=== PATIENT | female | born 1995 | race Two or more races ===

== ENCOUNTER 2025-04-08 11:01 | Observation (INO) | payer MEDICAID, SELFPAY ==
[2025-04-08 11:20] VITALS: BP 122/83; PULSE 74; RESP 19; TEMP 36.6; O2SAT 97
[2025-04-08 11:29] VITALS: BP 119/78; PULSE 78; RESP 19; TEMP 36.8; O2SAT 97; BMI 38.9
--- NOTE | 2025-04-08 11:41 | XR_ITS ---
Examination: Abdomen sonogram, Limited Date and time of exam: April 08, 2025, 12 noon INDICATIONS: Epigastric pain beginning this morning Technique: Real-time donahue scale transabdominal sonographic images of the upper abdomen obtained. Findings: Multiple gallstones Gallbladder wall borderline thickened 0.4 cm Common bile duct 0.3 cm Pancreatic head 3.0 cm Liver 15.6 cm fatty infiltration. Normal hepatopetal portal venous flow. Patent IVC IMPRESSION: Cholelithiasis Borderline thickening gallbladder wall, consider HIDA scan or MRCP follow-up to exclude cholecystitis as clinically warranted.
--- NOTE | 2025-04-08 12:14 | PD.EDRME ---
Rapid Medical Screening Exam [facility] Arrival date/time: 04/08/25 11:01 This is a 29-year-old female that comes into the emergency room with complaints of epigastric pain that radiates down her back. Patient states that she has had this pain before and was told that it was possibly gallstones. Patient states the pain started this morning patient denies any fever, nausea, vomiting. I have greeted and performed a focused initial assessment of this patient. Initial appropriate labs ordered at this time. A comprehensive ED assessment and evaluation of the patient and analysis of all test and completion of medical decision making process will be conducted by additional ED provider. Chief Complaint: Abdominal Pain Time Seen by Provider: 04/08/25 11:20 Vital signs: Vital Signs Temperature 97.9 F 04/08/25 11:20 Pulse Rate 74 04/08/25 11:20 Respiratory Rate 19 04/08/25 11:20 Blood Pressure 122/83 04/08/25 11:20 Pulse Oximetry (%) 97 04/08/25 11:20 Oxygen Delivery Method Room Air 04/08/25 11:20
[2025-04-08 12:31] LABS: Collection Type, Urine Voided
[2025-04-08 12:49] LABS: Basophils # (Auto) 0.1 Thou/mm3 (0.0-0.2); Basophils % (Auto) 0 % (0-2.5); Eosinophils # (Auto) 0.1 Thou/mm3 (0.0-0.5); Eosinophils % (Auto) 1 % (0-10); Hematocrit 39.7 % (36.0-46.0); Hemoglobin 13.7 g/dL (12.0-16.0); Immature Granulocytes Auto 0.06 Thou/mm3 (0.00-0.00); Lymphocytes # (Auto) 1.3 Thou/mm3 (1.0-4.8); Lymphocytes % (Auto) 10 % (10-50); Mean Corpuscular HGB Conc 34.5 g/dl (31.0-37.0); Mean Corpuscular Hemoglobin 28.1 pg (25.0-35.0); Mean Corpuscular Volume 81 fL (80-100); Monocytes # (Auto) 0.7 Thou/mm3 (0.0-0.8); Monocytes % (Auto) 5 % (0-12); Neutrophils # (Auto) 10.9 Thou/mm3 (1.8-7.7); Neutrophils % (Auto) 84 % (37-80); Nucleated Red Blood Cell # 0.00 Thou/mm3 (0.00-0.00); Nucleated Red Blood Cell % 0 /100 WBC (0); Platelet Count 244 Thou/mm3 (140-440); RDW Standard Deviation 36.6 fL (36.4-46.3); Red Blood Count 4.88 Miln/mm3 (4.00-5.20); White Blood Count 13.1 Thou/mm3 (3.6-11.0)
[2025-04-08 12:53] LABS: Alanine Aminotransferase 30 U/L (10-49); Albumin, Serum 4.4 gm/dL (3.5-5.0); Albumin/Globulin Ratio 1.8 (1.2-2.2); Alkaline Phosphatase 74 U/L (46-116); Anion Gap 10 (7-16); Aspartate Amino Transferase 49 U/L (0-34); BUN/Creatinine Ratio 13 Ratio (12-20); Bilirubin,Total 1.0 mg/dL (0.3-1.2); Blood Urea Nitrogen 9 mg/dL (9-23); Calcium 9.1 mg/dL (8.3-10.6); Calcium (Corrected) 9.1 mg/dL (8.5-10.1); Carbon Dioxide 24.9 mMol/L (20.0-31.0); Chloride 108 mMol/L (98-107); Creatinine (Component) 0.7 mg/dL (0.6-1.3); Estimated Creatinine Clearance 137.2 mL/min (>60); Globulin 2.4 gm/dL (2.3-3.5); Glucose 112 mg/dL (74-106); Lipase 33 U/L (12-53); Osmolality,Calculated 284 (275-295); Potassium 3.8 mMol/L (3.4-5.1); Sodium 143 mMol/L (136-145); Total Protein 6.8 gm/dL (5.7-8.2); eGFR > 60 See Note
[2025-04-08 12:54] LABS: Bilirubin,Urine Negative (Negative); Blood,Urine Negative (Negative); Clarity,Urine Clear (Clear/Hazy); Color,Urine Yellow (Lt Yel-Yel); Culture Indicated,Urine Not Indicated; Glucose, Urine Negative (Negative); Ketones,Urine Negative (Negative); Leukocyte Esterase,Urine Negative (Negative); Nitrite,Urine Negative (Negative); PH,Urine 6.5 (5.0-7.0); Protein,Urine Trace (Neg - Trace); RBC,Urine 2 /hpf (0-3); Specific Gravity,Urine 1.030 (1.001-1.035); Squamous Epithelial Cell,Urine 2 /hpf (0-5); Urobilinogen,Urine 3.0 mg/dL (0.0-1.0); WBC,Urine 1 /hpf (0-5)
[2025-04-08 13:01] LABS: Amphetamine/Methamp Scrn,U Negative (Negative); Barbiturate Screen,Urine Negative (Negative); Benzodiazepines Screen,Urine Negative (Negative); Benzoylecgonine Screen, Ur Negative (Negative); Fentanyl Screen,Urine Negative (Negative); Opiate Screen,Urine Negative (Negative); THC Screen,Urine Negative (Negative)
[2025-04-08 13:53] LABS: HCG Qualitative,Urine Negative
--- NOTE | 2025-04-08 13:59 | PD.EDABDPN ---
ED Abdominal Pain RME/HPI General Chief Complaint: Abdominal Pain Stated complaint: STOMACH PAIN/CHEST PAIN X3O MINS Time seen by provider: 04/08/25 11:20 Arrival date/time: 04/08/25 11:01 Limitations: no limitations RME / HPI RME / HPI narrative: 04/08/25 11:01 This is a 29-year-old female that comes into the emergency room with complaints of epigastric pain that radiates down her back. Patient states that she has had this pain before and was told that it was possibly gallstones. Patient states the pain started this morning patient denies any fever, nausea, vomiting. I have greeted and performed a focused initial assessment of this patient. Initial appropriate labs ordered at this time. A comprehensive ED assessment and evaluation of the patient and analysis of all test and completion of medical decision making process will be conducted by additional ED provider. Dr. Hahn Patient is a 29-year-old female is in the emergency department with concerns of epigastric pain. Denies fevers, chills, cough, runny nose, dysuria, hematuria, melena, bloody stools. Endorses nausea and vomiting. Patient states that she was told that she had cholelithiasis sometime back however her symptoms have been well-controlled. Patient states that the pain is unbearable Related Data Home Medications ?Medication ?Instructions ?Recorded ?Confirmed wovpvjpa-[id number]-Sw-FA 1 mg 1 tab PO QDAY 03/18/23 04/08/25 tablet Previous Rx's ?Medication ?Instructions ?Recorded docusate sodium 100 mg capsule 100 mg PO BID #20 caps 04/09/25 (Colace) hydrocodone 5 mg-acetaminophen 325 1 tab PO Q6HR PRN pain (scale 1020/25 mg tablet score 7-10) #10 tabs ibuprofen 600 mg tablet 600 mg PO Q8H PRN pain (scale 25 score 4-6) #15 tabs Allergies Allergy/AdvReac Type Severity Reaction Status Date / Time No Known Allergies Allergy Unknown Verified 04/08/25 11:05 ED Exam General Limitations: Present no limitations General appearance: Present alert Head Head exam: Present atraumatic and normocephalic Eye Eye exam: Present normal appearance and PERRL ENT ENT exam: Present normal exam and normal oropharynx Neck Neck exam: Present normal inspection and full ROM Chest Chest inspection: Present normal inspection and symmetric chest wall rise Respiratory Respiratory exam: Present normal lung sounds bilaterally; Absent respiratory distress Cardiovascular Cardiovascular exam: Present regular rate and normal rhythm Abdominal Exam Abdominal exam: Present soft, distention and tenderness (Tenderness palpation, worse in the right upper quadrant, uncomfortable) Back Exam Back exam: Present other Neurological Exam Neurological exam: Present alert and other Psychiatric Psychiatric exam: Present normal affect and normal mood Skin Skin exam: Present warm, dry and intact Course Quality Measures none Orders Category Date Time Status Consult to General Surgery Stat Cons 04/08/25 15:12 Ordered US abdomen limited Stat Exams 04/08/25 11:41 Completed Blood Culture (Lab) Stat Lab 04/08/25 15:20 Results CBC Stat Lab 04/08/25 12:20 Completed Comprehensive Metabolic Panel Stat Lab 04/08/25 12:20 Completed Drug Screen,Urine Stat Lab 04/08/25 12:08 Completed HCG Qualitative,Urine Stat Lab 04/08/25 12:08 Completed Lipase Stat Lab 04/08/25 12:20 Completed Urinalysis, C/S if Indicated Stat Lab 04/08/25 12:08 Completed Ketorolac Inj [Toradol Inj] Med 04/08/25 15:13 Discontinued 15 mg IM X1 ONE Ringers Lactated 1000 ml [Lactated Ringers] 1,000 ml Med 04/08/25 15:20 Discontinued IV 999 mls/hr cefTRIAXone/D5w 1gm IV premix [Rocephin/D5w 1gm IV Med 04/08/25 15:13 Discontinued premix] 1 gm in 50 ml IV STAT metroNIDAZOLE/NS 500 MG IVPB [Flagyl 500 mg IV] Med 04/08/25 15:13 Discontinued 500 mg in 100 ml IV STAT Vital Signs Vital signs: Vital Signs Temperature 97.9 F 04/08/25 11:20 Pulse Rate 74 04/08/25 11:20 Respiratory Rate 19 04/08/25 11:20 Blood Pressure 122/83 04/08/25 11:20 Pulse Oximetry (%) 97 04/08/25 11:20 Oxygen Delivery Method Room Air 04/08/25 11:20 Abdominal Pain MDM MDM Narrative MDM Narrative:: Patient is a 29-year-old female seen emerged from concerns for abdominal pain. Vital signs and exam as listed. Prior provider evaluated patient. Ordered labs, right upper quadrant ultrasound. Offer medication for symptom relief. Concern for cholelithiasis cholecystitis pancreatitis urinary tract infection among others. On my evaluation, patient significantly uncomfortable, teary-eyed states that her pain comes and goes every 30 minutes. Ordered medication for symptom relief. Labs with evidence of leukocytosis 13.1, left shift of 84%, no other acute hematologic abnormalities. No significant acute metabolic derangements mild AST 49, lipase not elevated, T. bili normal, urinalysis without evidence of infection patient is not . Drug screen negative. Ultrasound with evidence of borderline gallbladder wall thickening, and multiple gallstones. Given leukocytosis, severe pain, and gallbladder wall thickening concerning the patient is developing cholecystitis. Ordered blood cultures and antibiotics. Consulted on-call surgeon Dr. Allen, agrees with admission. Will consult. Discussed case with hospitalist, kindly accepted patient for admission. Patient data External records reviewed:: [facility] previous records Clinical information provided by:: patient Social determinants that could affect healthcare access:: none Patient has the following chronic illnesses:: See MDM How is presenting disease/condition affected by chronic disease/condition?: exacerbated by Evaluation data The following diagnostics were reviewed and interpreted by me:: lab results and radiology exam(s) Lab and/or radiology exams considered but not ordered:: None Interpretation Summary: See MDM Medications / Prescriptions Medications or Prescriptions considered but not ordered:: None Medication administrations:: Medication Administration History Discontinued Medications Acetaminophen (Acetaminophen 325 Mg Tablet) 650 mg PO Q6H PRN PRN Reason: Fever >101.5 Stop: 05/08/25 16:03 Acetaminophen (Acetaminophen 325 Mg Tablet) 650 mg PO Q6H PRN PRN Reason: Fever >100.4 and/or pain 1-3 Stop: 05/08/25 16:03 Last Admin: 04/09/25 10:00 Dose: 650 mg Documented By: Hydrocodone Bitart/Acetaminophen (Hydrocodone/Apap 5/325 Tablet) 1 tab PO Q6HR PRN PRN Reason: Pain 4-6 Stop: 04/13/25 17:07 Bupivacaine HCl (Bupivacaine Mpf 0.5% 30 Ml Vial) Confirm Administered Dose 30 ml .ROUTE .STK-MED ONE Stop: 04/09/25 10:49 Cefoxitin Sodium (Cefoxitin Sod Inj 1 Gm Vial) Confirm Administered Dose 1 gm .ROUTE .STK-MED ONE Stop: 04/09/25 11:04 Cefoxitin Sodium (Cefoxitin Sod Inj 1 Gm Vial) Confirm Administered Dose 1 gm .ROUTE .STK-MED ONE Stop: 04/09/25 11:04 Docusate Sodium (Docusate Sod 100 Mg Capsule) 100 mg PO X1 ONE; Protocol Stop: 04/09/25 12:50 Last Admin: 04/09/25 14:01 Dose: 100 mg Documented By: MR Fentanyl Citrate (Fentanyl Cit Inj 50 Mcg/Ml Amp 2ml) Confirm Administered Dose 100 mcg .ROUTE .STK-MED ONE Stop: 04/09/25 10:48 Hydromorphone HCl (Hydromorphone Inj 2 Mg/Ml Vial) Confirm Administered Dose 2 mg .ROUTE .STK-MED ONE Stop: 04/09/25 10:48 Hydromorphone HCl (Hydromorphone Inj 2 Mg/Ml Vial) 0.4 mg IVP Q5M PRN PRN Reason: PAIN SCALE 7-10 (Severe Stop: 04/09/25 13:45 Ceftriaxone Sodium/Dextrose (Rocephin/D5w 1gm Iv Premix) 1 gm in 50 mls @ 100 mls/hr IV STAT STA Stop: 04/08/25 15:42 Last Admin: 04/08/25 20:21 Dose: Not Given Documented By: SOHA Non-Admin Reason: Per Dr. Chapman do not give Metronidazole (Flagyl 500 Mg Iv) 500 mg in 100 mls @ 200 mls/hr IV STAT STA Stop: 04/08/25 15:42 Last Admin: 04/08/25 20:22 Dose: Not Given Documented By: SOHA Non-Admin Reason: Per Dr. Chapman do not give Lactated Ringer's (Lactated Ringers) 1,000 mls @ 999 mls/hr IV .Q1H1M ONE Stop: 04/08/25 16:20 Last Admin: 04/08/25 19:12 Dose: 999 mls/hr Documented By: LIZETTE Piperacillin/Tazobactam/Dextrose (Zosyn) 3.375 gm in 50 mls @ 12.5 mls/hr IV Q8HR [facility]; Protocol Stop: 04/15/25 21:59 Last Admin: 04/09/25 05:03 Dose: 12.5 mls/hr Documented By: Infusion: 04/09/25 02:25 Dose: Infused Documented By: Admin: 04/08/25 22:25 Dose: 12.5 mls/hr Documented By: SOHA Piperacillin/Tazobactam/Dextrose (Zosyn) 3.375 gm in 50 mls @ 100 mls/hr IV X1 ONE; Protocol Stop: 04/08/25 16:44 Last Admin: 04/08/25 20:22 Dose: Not Given Documented By: GD Non-Admin Reason: Per Dr. Chapman do not give. Lactated Ringer's (Lactated Ringers) 1,000 mls @ 100 mls/hr IV .Q10H JAYANT Stop: 05/08/25 17:07 Last Admin: 04/09/25 05:27 Dose: 100 mls/hr Documented By: Infusion: 04/09/25 05:27 Dose: Infused Documented By: Admin: 04/08/25 20:14 Dose: 100 mls/hr Documented By: SOHA Acetaminophen (Ofirmev Inj) Confirm Administered Dose 100 mls @ ud IV .STK-MED ONE Stop: 04/09/25 11:09 Potassium Phosphate (Pot Phos 15 Mmol In Ns 250 Ml) 15 mmol in 250 mls @ 62.5 mls/hr IV Q4H JAYANT Stop: 04/09/25 22:55 Last Admin: 04/09/25 15:33 Dose: Not Given Documented By: Non-Admin Reason: DISCONTINUE PER DR. SANCHEZ Ketorolac Tromethamine (Ketorolac Inj 30 Mg/Ml Vial) 15 mg IM X1 ONE Stop: 04/08/25 15:14 Last Admin: 04/08/25 20:17 Dose: Not Given Documented By: SOHA Non-Admin Reason: ER did not administer. Pt. not in pain Ketorolac Tromethamine (Ketorolac Inj 30 Mg/Ml Vial) Confirm Administered Dose 30 mg .ROUTE .STK-MED ONE Stop: 04/09/25 11:33 Ketorolac Tromethamine (Ketorolac Inj 30 Mg/Ml Vial) Confirm Administered Dose 30 mg .ROUTE .STK-MED ONE Stop: 04/09/25 11:34 Lidocaine HCl (Lidocaine Inj 2% 20 Mg/Ml Syringe 5 Ml) Confirm Administered Dose 100 mg .ROUTE .STK-MED ONE Stop: 04/09/25 10:55 Midazolam HCl (Midazolam Inj 1 Mg/Ml Vial 2 Ml) Confirm Administered Dose 2 mg .ROUTE .STK-MED ONE Stop: 04/09/25 10:48 Morphine Sulfate (Morphine Sulf Inj 4 Mg/Ml Vial) 1 mg IVP Q4HR PRN PRN Reason: pain 7-10 Ondansetron HCl (Ondansetron Inj 2 Mg/Ml Inj 2 Ml) 4 mg IVP Q6H PRN; Protocol PRN Reason: NAUSEA OR VOMITING Stop: 05/08/25 16:03 Last Admin: 04/09/25 10:00 Dose: 4 mg Documented By: Ondansetron HCl (Ondansetron Inj 2 Mg/Ml Inj 2 Ml) 4 mg IVP X1 ONE Stop: 04/09/25 11:46 Last Admin: 04/09/25 13:16 Dose: Not Given Documented By: Non-Admin Reason: given in OR Potassium Chloride (Potassium Chloride 20 Meq Tabcr) 20 meq PO X1 ONE Stop: 04/09/25 15:32 Last Admin: 04/09/25 15:36 Dose: 20 meq Documented By: Propofol (Propofol Inj 10 Mg/Ml Vial 20 Ml) Confirm Administered Dose 200 mg IV .STK-MED ONE Stop: 04/09/25 10:48 Rocuronium Maysel (Rocuronium Inj 10 Mg/Ml Vial 10 Ml) Confirm Administered Dose 100 mg .ROUTE .STK-MED ONE Stop: 04/09/25 10:48 Sugammadex Sodium (Sugammadex Inj 100 Mg/Ml 2ml Vial) Confirm Administered Dose 200 mg .ROUTE .STK-MED ONE Stop: 04/09/25 11:33 Sugammadex Sodium (Sugammadex Inj 100 Mg/Ml 2ml Vial) Confirm Administered Dose 200 mg .ROUTE .STK-MED ONE Stop: 04/09/25 11:46 See above Consultations Consultation(s) initiated? (list below): Yes Diagnosis Differential diagnosis abdominal pain: other Most likely diagnosis given after review of the tests above:: Cholecystitis Admission Indicated Admission indicated?: indicated Admission Request Was there a request for admission?: Yes Admission Attestation Admission request attestation: Discussed case with Hospitalist service regarding admission. Discussed patients ED course, exam findings, labs, and radiology results. The Hospitalist [agrees] to accept the patient for admission. Disposition Plan Disposition Plan: Admit Critical Care Time Critical Care Time Critical Care Time: Yes Total Critical Care Time (min.): 45 Attestation: Due to a high probability of clinically significant, life threatening deterioration, the patient required my highest level of preparedness to intervene emergently and I personally spent this critical care time directly and personally managing the patient. This critical care time included obtaining a history; examining the patient; pulse oximetry; ordering and review of studies; arranging urgent treatment with development of a management plan; evaluation of patient's response to treatment; frequent reassessment; and, discussions with other providers. This critical care time was performed to assess and manage the high probability of imminent, life-threatening deterioration that could result in multi-organ failure. It was exclusive of separately billable procedures and treating other patients and teaching time. Discharge Plan Plan Patient Disposition: Admit Acute Care w/in Hospital Problem List Clinical Impression: Acute cholecystitis Patient/Caregiver Discharge Instructions Discharge Activity: activity as tolerated Other Activity Instructions:: Please follow-up primary care physician within 2 to 3 days upon discharge Please follow-up with your general surgeon within 5 to 7 days upon discharge. You have been started on Colace 1 mg twice daily for 10 days, Empire 5/325 1 tablet every 6 hours as needed for pain, and ibuprofen 600 mg tablet every 8 hours as needed for pain. Come back to the ED if you develop any fevers, excruciating pain, abdominal distention, or any other concerning symptoms.
--- NOTE | 2025-04-08 16:12 | PD.RESHP ---
Documentation for date of: 04/08/25 Senior resident attestation: Patient evaluated and examined at the bedside, plan of care discussed with rest of the team including my attending physician, except as noted. Qurafita PGY3 HPI History of Present Illness Chief complaint: Abdominal pain History of present illness: Annemarie Langford 29F no pmhx who presents with epigastric and RUQ pain starting this morning. Patient states she woke up with right quadrant pain starting at 4/10 however throughout the day worsened to 9/10 prompting current ED visit. Patient reports pain starts at epigastric region and radiates to the right upper quadrant as well as to the back. Reports pain waxes and wanes every 30 min to hour and is described as sharp cramp-like. Patient reports having similar symptoms in 2012 when she was diagnosed with gallstones but was managed with medication only. Patient denies any recent illness, travel or dietary changes. Denies fever/chills, nausea/vomiting, chest pain or shortness of breath. PMHx: none Surgical Hx: none FHx: Noncontributory Social Hx: denies tobacco, alcohol or recreational/illicit drug use Allergies: NKDA Medications: none In ED, BP 122/83 HR 74 RR 19, afebrile, satting 97% RA, WBC 13.1, Hgb 9.7, Tbili 1.0, AST/ALT 49/30. In ED, given ketorolac 15 mg x1, Flagyl x1, Rocephin x1, 1L LR. Abdominal US: cholelithiasis, borderline thickening GB wall. Surgery consulted, cholecystectomy today. Patient was admitted for cholecystitis, scheduled for cholecystectomy. Review of Systems Review of Systems Systems Reviewed: All systems reviewed, normal except as documented Exam Vital Signs Temp Pulse Resp BP Pulse Ox O2 Del Method 98.3 F 78 19 119/78 97 Room Air 04/08/25 11:29 04/08/25 11:29 04/08/25 11:29 04/08/25 11:29 04/08/25 11:29 04/08/25 11:29 Narrative Exam GENERAL: AOx3, teary, obese well groomed female HEENT: mucous membranes moist, bilateral sclera anicteric CARDIOVASCULAR: regular rate and rhythm, S1/S2 present, no murmurs appreciated PULMONARY: clear to auscultation bilaterally, no rales/rhonchi/wheezes ABDOMINAL: soft, non-distended, bowel sounds present, RUQ TTP with guarding EXTREMITIES: no peripheral edema SKIN: warm and dry, intact, no rashes NEURO: CN II-XII grossly intact, no focal deficits, alert, following commands Results: Labs 04/09/25 05:15 04/09/25 05:15 Labs: Short CBC 04/08/25 Range/Units 12:20 WBC 13.1 H (3.6-11.0) Thou/mm3 Hgb 13.7 (12.0-16.0) g/dL Hct 39.7 (36.0-46.0) % Plt Count 244 (140-440) Thou/mm3 BMP 04/08/25 12:20 Sodium 143 Potassium 3.8 Chloride 108 H Carbon Dioxide 24.9 BUN 9 Creatinine 0.7 Glucose 112 H Calcium 9.1 Liver Function 04/08/25 Range/Units 12:20 Total Bilirubin 1.0 (0.3-1.2) mg/dL AST 49 H (0-34) U/L ALT 30 (10-49) U/L Alkaline Phosphatase 74 (46-116) U/L Albumin 4.4 (3.5-5.0) gm/dL Urine 04/08/25 Range/Units 12:08 Urine Color Yellow (Lt Yel-Yel) Urine Clarity Clear (Clear/Hazy) Urine pH 6.5 (5.0-7.0) Ur Specific [place] 1.030 (1.001-1.035) Urine Protein Trace (Neg - Trace) Urine Glucose (UA) Negative (Negative) Quality Measures Quality Measures VTE prophylaxis Medications Home Medications and Allergies Home Medications ?Medication ?Instructions ?Recorded ?Confirmed ?Type [id number] 1 mg 1 tab PO QDAY 03/18/23 04/08/25 History tablet Allergies Allergy/AdvReac Type Severity Reaction Status Date / Time No Known Allergies Allergy Unknown Verified 04/08/25 11:05 Visit Medications Acetaminophen (Acetaminophen 325 Mg Tablet) 650 mg PO Q6H PRN PRN Reason: Fever >101.5 Stop: 05/08/25 16:03 Lactated Ringer's (Lactated Ringers) 1,000 mls @ 999 mls/hr IV .Q1H1M ONE Stop: 04/08/25 16:20 Piperacillin/Tazobactam/Dextrose (Zosyn) 50 mls @ 100 mls/hr IV Q6HR JAYANT; Protocol Stop: 04/15/25 16:09 Ondansetron HCl (Ondansetron Inj 2 Mg/Ml Inj 2 Ml) 4 mg IVP Q6H PRN; Protocol PRN Reason: NAUSEA OR VOMITING Stop: 05/08/25 16:03 Discontinued Medications Ceftriaxone Sodium/Dextrose (Rocephin/D5w 1gm Iv Premix) 1 gm in 50 mls @ 100 mls/hr IV STAT STA Stop: 04/08/25 15:42 Metronidazole (Flagyl 500 Mg Iv) 500 mg in 100 mls @ 200 mls/hr IV STAT STA Stop: 04/08/25 15:42 Ketorolac Tromethamine (Ketorolac Inj 30 Mg/Ml Vial) 15 mg IM X1 ONE Stop: 04/08/25 15:14 Assessment & Plan Plan Annemarie Langford 29F no pmhx who presented to [facility] ED 04/08 for epigastric and RUQ pain, admitted for cholecystitis, planned for cholecystectomy 04/08. #Acute calculus cholecystitis #RUQ pain Presents with severe epigastric and RUQ cramp-like pain radiating to the back. Diagnosed gallstones in 2012 with similar episode. On admission, afebrile, BP 120/80 heart rate 74, AST/ALT 40/30 T. bili 1.0. s/p 1L LR in ED, ceftriaxone x1 and flagyl x1 Abdominal US: cholelithiasis, borderline thickening GB wall Given patient's history of gallstones as well as severe pain high suspicion for acute calculous cholecystitis Plan: - Surgery consulted: cholecystectomy today, NPO now - Zosyn (04/08- - Pain scale tylenol, norco 5 and morphine 1 mg for pain and zofran for nausea - Started 1L LR 100 cc/hr Hospital management: Lines: PIV Diet: NPO now Bowel: none GI prophylaxis: none DVT prophylaxis: SCDs Disposition: med [facility], pending cholecystectomy tonight CODE STATUS: FULL CODE Plan of care discussed with attending Dr. Brito, and PGY-3 Dr. Tate. Rachael Srivastava, DO PGY-1 Internal Medicine Attending Provider Attestation/Addendum I have seen and examined the patient. I was physically present for the [place]fle[place] portions of the services provided including history, physical exam, diagnosis, treatment plans and orders. I agree with assessment and plan of care as documented by residents. After examination of the patient and review of the clinical data I feel that this patient needs admission to the hospital for further treatment/evaluation. Even though this this note was carefully revised there may still be minor errors in roller printing supervisor due to voice recognition software. Geo Brito MD
--- NOTE | 2025-04-08 17:45 | PD.SURCONS ---
HPI Consult details Consult date: 04/08/25 Reason for consultation narrative: Right upper quadrant abdominal pain with nausea History of present illness: 29-year-old obese female with history of gallstone presented to the emergency department with acute onset of abdominal pain. Her pain started earlier today after eating. The pain was in the epigastric and right upper quadrant rating to her back. She has had some nausea but denies vomiting, fever, chills, jaundice or discoloration of urine or stool. Her liver enzymes are unremarkable. She was noted to have elevated WBC. Ultrasound revealed multiple gallstones with gallbladder wall thickening. Review of Systems Constitutional Constitutional: Denies chills and Denies fever(s) Cardiovascular Cardiovascular: Denies chest pain Respiratory Respiratory: Denies cough Gastrointestinal Gastrointestinal: Reports abdominal pain, Reports nausea and Denies vomiting Genitourinary Genitourinary: Denies difficulty voiding Musculoskeletal Musculoskeletal: Reports back pain Hematologic/Lymphatic Hematologic/Lymphatic: Denies easy bleeding and Denies easy bruising Past Medical History Surgical History OTHER SURGICAL HX: No surgeries in the past Social History SMOKING STATUS: Never smoker SUBSTANCE USE: does not use ALCOHOL: Never Meds Home Medications and Allergies Home Medications ?Medication ?Instructions ?Recorded ?Confirmed ?Type [id number]-[id number]-[id number]-FA 1 mg 1 tab PO QDAY 03/18/23 04/08/25 History tablet Allergies Allergy/AdvReac Type Severity Reaction Status Date / Time No Known Allergies Allergy Unknown Verified 04/08/25 11:05 Exam Vital Signs Temp Pulse Resp BP Pulse Ox O2 Del Method 98.3 F 78 19 119/78 97 Room Air 04/08/25 11:29 04/08/25 11:29 04/08/25 11:29 04/08/25 11:29 04/08/25 11:29 04/08/25 11:29 Routine HEENT Exam Eye: Present PERRL (Anicteric sclera) Routine Abdominal Exam Comments: Abdomen is soft and nondistended. She has tenderness to palpation in epigastric and right upper quadrant, positive Ryan sign Results Results: Laboratory Laboratory results: results reviewed Results: Imaging US - abdomen: report reviewed and image reviewed Assessment & Plan Problem List (1) Biliary calculus with cholecystitis: Status: Acute Plan Will plan for laparoscopic possible open cholecystectomy. Risks include but not limited to infection, bleeding, injury to bowel, liver, stomach, bile leak, retained stone, bile leak, abdominal sepsis and or abdominal abscess, need for further procedure and or operation discussed with the patient. Benefits and alternatives explained to her, all her questions answered, she agreed and consented to proceed with the operation. (1) Biliary calculus with cholecystitis Qualifiers: Biliary obstruction: without biliary obstruction Cholecystitis acuity: chronic Cholelithiasis location: gallbladder Qualified Code(s): K80.10 - Calculus of gallbladder with chronic cholecystitis without obstruction
--- NOTE | 2025-04-08 17:49 | PC.NURSE ---
REPORT CALLED TO JUAN LAWSON. 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
--- NOTE | 2025-04-08 17:58 | PC.NURSE ---
Pt. arrived to floor from Sofia Husain Questionnaire Screening complted by myself before pt. taken to room 374, No to all questions.
--- NOTE | 2025-04-08 18:01 | PC.NURSE ---
Pt arrived to floor from Sofia Rudolph screen questions not completed. I asked the pt. the questions answer to all questions is NO .
[2025-04-08 18:04] VITALS: BMI 39.6
[2025-04-08 18:45] VITALS: BP 116/72; PULSE 74; RESP 20; TEMP 36.6; O2SAT 98
[2025-04-08] MEDS: RINGERS LACTATED 1000 ML 1,000 ML 999 ML IV (19:12)
[2025-04-08 20:00] VITALS: BP 113/68; PULSE 71; RESP 16; TEMP 37.1; O2SAT 100
[2025-04-08] MEDS: RINGERS LACTATED 1000 ML 1,000 ML 100 ML IV (20:14)
[2025-04-08] MEDS: PIPER/TAZO 3.375 GM PREMIX 3.375 GM/50 ML BAG IV (22:25)
[2025-04-09] VITALS (13 sets, daily range): BP systolic 111–143; BP diastolic 68–91; PULSE 69–121; RESP 15–99; TEMP 36.5–37.1; O2SAT 96–100
[2025-04-09] MEDS: PIPER/TAZO 3.375 GM PREMIX 3.375 GM/50 ML BAG IV (05:03)
[2025-04-09] MEDS: RINGERS LACTATED 1000 ML 1,000 ML 100 ML IV (05:27)
[2025-04-09 06:27] LABS: Basophils # (Auto) 0.0 Thou/mm3 (0.0-0.2); Basophils % (Auto) 1 % (0-2.5); Eosinophils # (Auto) 0.1 Thou/mm3 (0.0-0.5); Eosinophils % (Auto) 1 % (0-10); Hematocrit 36.4 % (36.0-46.0); Hemoglobin 12.4 g/dL (12.0-16.0); Immature Granulocytes Auto 0.02 Thou/mm3 (0.00-0.00); Lymphocytes # (Auto) 2.0 Thou/mm3 (1.0-4.8); Lymphocytes % (Auto) 23 % (10-50); Mean Corpuscular HGB Conc 34.1 g/dl (31.0-37.0); Mean Corpuscular Hemoglobin 28.3 pg (25.0-35.0); Mean Corpuscular Volume 83 fL (80-100); Monocytes # (Auto) 0.6 Thou/mm3 (0.0-0.8); Monocytes % (Auto) 7 % (0-12); Neutrophils # (Auto) 5.9 Thou/mm3 (1.8-7.7); Neutrophils % (Auto) 69 % (37-80); Nucleated Red Blood Cell # 0.00 Thou/mm3 (0.00-0.00); Nucleated Red Blood Cell % 0 /100 WBC (0); Platelet Count 240 Thou/mm3 (140-440); RDW Standard Deviation 37.8 fL (36.4-46.3); Red Blood Count 4.38 Miln/mm3 (4.00-5.20); White Blood Count 8.7 Thou/mm3 (3.6-11.0)
[2025-04-09 07:02] LABS: Alanine Aminotransferase 110 U/L (10-49); Albumin, Serum 3.8 gm/dL (3.5-5.0); Albumin/Globulin Ratio 1.7 (1.2-2.2); Alkaline Phosphatase 88 U/L (46-116); Anion Gap 10 (7-16); Aspartate Amino Transferase 100 U/L (0-34); BUN/Creatinine Ratio 8 Ratio (12-20); Bilirubin,Total 1.1 mg/dL (0.3-1.2); Blood Urea Nitrogen 5 mg/dL (9-23); Calcium 8.7 mg/dL (8.3-10.6); Calcium (Corrected) 8.9 mg/dL (8.5-10.1); Carbon Dioxide 23.1 mMol/L (20.0-31.0); Cardiac Risk Estimate 3.4 RATIO (3.7-5.6); Chloride 110 mMol/L (98-107); Cholesterol 116 mg/dL (132-200); Creatinine (Component) 0.6 mg/dL (0.6-1.3); Estimated Creatinine Clearance 161.7 mL/min (>60); Globulin 2.2 gm/dL (2.3-3.5); Glucose 88 mg/dL (74-106); HDL Cholesterol 34 mg/dL (40-60); LDL Cholesterol,Calculated 69 mg/dL (0-130); Magnesium 1.8 mg/dL (1.6-2.6); Osmolality,Calculated 281 (275-295); Potassium 3.5 mMol/L (3.4-5.1); Sodium 143 mMol/L (136-145); Total Protein 6.0 gm/dL (5.7-8.2); Triglycerides 67 mg/dL (30-150); eGFR > 60 See Note
[2025-04-09] MEDS: ACETAMINOPHEN 325 MG TABLET 650 MG PO (10:00)
[2025-04-09] MEDS: ONDANSETRON INJ 2 MG/ML INJ 2 ML 4 MG IVP (10:00)
--- NOTE | 2025-04-09 11:50 | ESOP_ITS ---
Date of Procedure 04/09/25 Pre Op Diagnosis Cholelithiasis with acute cholecystitis Post Op Diagnosis Cholelithiasis with cholecystitis Procedure Laparoscopic cholecystectomy Findings Mildly distended gallbladder with multiple gallstones, gallbladder wall thickening and chronic cholecystitis Procedure Description Patient was brought into the operating room in supine position. After administration of general endotracheal anesthesia abdomen was prepped and draped in standard surgical manner. A Veress needle was inserted through the umbilicus and pneumoperitoneum was obtained up to 15 mmHg. The Veress needle was then removed, a 5 mm infraumbilical incision was made and the 5mm trocar was inserted. Laparoscopic camera was placed. Under direct visualization a laparoscopic camera a 10 mm trocar was placed in subxiphoid and two 5 mm trocars placed in right upper quadrant. The gallbladder was identified and was noted to be mildly distended with multiple gallstones and gallbladder wall thickening. It was retracted cephalad and laterally. Dissection started near the infundibulum of gallbladder where cystic duct and gallbladder junction clearly identified. The cystic duct was circumferentially dissected off the peritoneum and surrounding inflammatory tissue. The critical view of safety was clearly demonstrated. Cystic duct was then divided between 2 endoclips proximally and one distally. The cystic artery was similarly dissected and divided. The gallbladder was then from the liver bed using electrocautery. The gallbladder was then placed inside an Endo Catch and removed from the abdomen utilizing subxiphoid trocar site. The area was copiously and thoroughly washed and irrigated, all the fluid was suctioned and the suction fluid returned clear. Hemostasis achieved using electrocautery. Endoclips noted be in place and intact without any bleeding or any leakage. Hemostasis was adequate and satis factory. The subxiphoid trocar sites fascial defect was closed with 0 Vicryl using Endo Closure device. Instruments and trocars removed, pneumoperitoneum was evacuated and the incisions closed with 4-0 Monocryl in subcuticular fashion. Instrument needle and sponge counts were all reported to be correct X2. Patient tolerated the procedure well, was extubated, breathing spontaneously and without difficulty and was transferred to postanesthesia care in stable condition. Anesthesia GETA and local Pathology / specimen Other (Gallbladder and contents) Estimated Blood Loss 10 Condition Stable Disposition PACU Surgeon Steven Allen MD Surgical Staff Operation Date: 04/09/25 10:45 <No data on this case meets the specified criteria>
--- NOTE | 2025-04-09 12:32 | SUR.PHASEI ---
1202: pt arrived to PACU via gurney with nasal airway present, drowsy but arouses to voice and follows commands, breathing unlabored, dressing to abdomen clean, dry, and intact, reprot from Will MARTINEZ and Allen BROWN 1225: pt tolerating ice chips without difficulty swallowing or n/v 1232: pt drowsy but arouses to voice and follows commands, breathing unlabored, VS stable, dressing to abdomen clean, dry and intact, report called to Neeru MARTINEZ, pt tranferred to room at this time.
--- NOTE | 2025-04-09 12:36 | PC.NURSE ---
PATIENT BACK FROM PACU, ALERT X2 LETHARGIC, ABLE TO WALK FROM [facility] TO HOSPITAL BED.
[2025-04-09] MEDS: DOCUSATE SOD 100 MG CAPSULE PO (14:01)
--- NOTE | 2025-04-09 14:53 | PD.RESPRO ---
Documentation for date of: 04/09/25 Subjective Subjective Interval history: No acute overnight events. Patient seen and examined at bedside. Patient provide upper quadrant pain is tolerable and denies require any medication overnight. No new complaints. Vitals reviewed. SBP [id number]. WBC decreased to 8.7. Potassium 2.5 repleted with 40 mEq. AST ALT 100/110, T. bili stable 1.1. Laparoscopic cholecystectomy today. Per surgery, discontinue Zosyn advance to full liquid diet. Plan to do solids tomorrow as tolerated. Exam Vital Signs Temp Pulse Resp BP Pulse Ox O2 Del Method O2 Flow Rate 98.2 F 99 16 143/89 H 97 Room Air 2 04/09/25 12:32 04/09/25 12:32 04/09/25 12:32 04/09/25 12:32 04/09/25 12:32 04/09/25 04:00 04/09/25 12:17 Narrative Exam GENERAL: AOx3, obese well groomed female HEENT: mucous membranes moist, bilateral sclera anicteric CARDIOVASCULAR: regular rate and rhythm, S1/S2 present, no murmurs appreciated PULMONARY: clear to auscultation bilaterally, no rales/rhonchi/wheezes ABDOMINAL: soft, non-distended, bowel sounds present, no abdominal TTP EXTREMITIES: no peripheral edema SKIN: warm and dry, intact, no rashes NEURO: CN II-XII grossly intact, no focal deficits, alert, following commands Objective Labs 04/09/25 05:15 04/09/25 05:15 Labs: Laboratory Results - last 24 hr 04/09/25 05:15 WBC 8.7 RBC 4.38 Hgb 12.4 Hct 36.4 MCV 83 MCH 28.3 MCHC 34.1 RDW Std Deviation 37.8 Plt Count 240 Neut % (Auto) 69 Lymph % (Auto) 23 Warren % (Auto) 7 Eos % (Auto) 1 Baso % (Auto) 1 Neut # (Auto) 5.9 Lymph # (Auto) 2.0 Warren # (Auto) 0.6 Eos # (Auto) 0.1 Baso # (Auto) 0.0 Immature Gran # (Auto) 0.02 H Absolute Nucleated RBC 0.00 Immature Gran % 0 Nucleated RBC % 0 Sodium 143 Potassium 3.5 Chloride 110 H Carbon Dioxide 23.1 Anion Gap 10 BUN 5 L Creatinine 0.6 Estim Creat Clear Calc 161.7 eGFR > 60 BUN/Creatinine Ratio 8 L Glucose 88 Calculated Osmolality 281 Calcium 8.7 Corrected Calcium 8.9 Magnesium 1.8 Total Bilirubin 1.1 AST 100 H ALT 110 H Alkaline Phosphatase 88 Total Protein 6.0 Albumin 3.8 D Globulin 2.2 L Albumin/Globulin Ratio 1.7 Triglycerides 67 Cholesterol 116 L LDL Cholesterol, Calc 69 HDL Cholesterol 34 L Cholesterol/HDL Ratio 3.4 L Quality Measures Quality Measures VTE prophylaxis Assessment & Plan Assessment Current Active Medications: Generic Name Dose Route Start Last Admin Trade Name Freq PRN Reason Stop Dose Admin Acetaminophen 650 mg 04/08/25 17:11 04/09/25 10:00 Acetaminophen 325 Mg Tablet PO 05/08/25 16:03 650 mg Q6H PRN Administration Fever >100.4 and/or pain 1-3 Hydrocodone Bitart/Acetaminophen 1 tab 04/08/25 17:08 Hydrocodone/Apap 5/325 Tablet PO 04/13/25 17:07 Q6HR PRN Pain 4-6 Morphine Sulfate 1 mg 04/08/25 17:08 Morphine Sulf Inj 4 Mg/Ml Vial IVP Q4HR PRN pain 7-10 Ondansetron HCl 4 mg 04/08/25 16:04 04/09/25 10:00 Ondansetron Inj 2 Mg/Ml Inj 2 Ml IVP 05/08/25 16:03 4 mg Q6H PRN Administration NAUSEA OR VOMITING Protocol Plan Annemarie Langford 29F no pmhx who presented to [facility] ED 04/08 for epigastric and RUQ pain, admitted for cholecystitis s/p laparoscopic cholecystectomy 04/09/25. #Acute calculus cholecystitis s/p laparascopic cholecystecomt 04/09/25 #RUQ pain Presents with severe epigastric and RUQ cramp-like pain radiating to the back. Diagnosed gallstones in 2012 with similar episode. On admission, afebrile, BP 120/80 heart rate 74, AST/ALT 40/30 T. bili 1.0. s/p 1L LR in ED, ceftriaxone x1 and flagyl x1 Abdominal US: cholelithiasis, borderline thickening GB wall Given patient's history of gallstones as well as severe pain high suspicion for acute calculous cholecystitis Zosyn 04/08-10/20 Plan: - Surgery consulted: cholecystectomy done today, FLD, plan to advance diet tomorrow when tolerated - Pain scale tylenol, norco 5 and morphine 1 mg for pain and zofran for nausea Hospital management: Lines: PIV Diet: FLD Bowel: none GI prophylaxis: none DVT prophylaxis: SCDs Disposition: med tele, post op recovery and advancing diet CODE STATUS: FULL CODE Plan of care discussed with attending Dr. Brito, and PGY-2 Dr. Christensen. Rachael Srivastava, DO PGY-1 Internal Medicine
--- NOTE | 2025-04-09 15:41 | PC.NURSE ---
RECEIVED PHONE CALL FROM DR. CACERES, TO PASS MESSAGE TO DR. SANCHEZ FOR DISCHARGE. DR. SANCHEZ MADE AWARE.
--- NOTE | 2025-04-09 16:00 | ESDS_ITS ---
<Statement entered by Lukas Cueva MD - 04/09/25 16:04> I have reviewed the note and agree with the resident's assessment & plan with exceptions as below. I have personally reviewed labs, imaging, home meds/prior records, examined the patient, formulated and discussed management plan with my attending Lukas Cueva PGY2 Disclaimer: Even though this this note was dictated by speech recognition and even though it was carefully revised there may still be minor errors in youth specialist due to voice recognition software. Planned Discharge Date 04/09/25 DS: Providers Provider Date of admission: 04/08/25 16:04 Primary care physician: Ceferino Catherine MD Admitting Provider: Geo Brito MD Attending Provider on Admission: Geo Brito MD Consults: 04/08/25 15:12 Consult to General Surgery Stat Comment: cholecystitis Consulting Provider: Steven Allen Attending Provider on DC: Geo Brito MD Discharging Provider: Geo Brito MD DS: Diagnosis Problem List Completed Was Problem List Reviewed/Reconciled?: Yes Hospital Course Hospital Course Hospital course: Summary: Annemarie Langford 29F no pmhx who presented to [facility] ED 04/08 for epigastric and RUQ pain, admitted for cholecystitis s/p laparoscopic cholecystectomy 04/09/25. Presented with severe epigastric and RUQ cramp-like pain radiating to the back, and diagnosed gallstones in 2012 with similar episode. On admission, afebrile, BP 120/80 heart rate 74, AST/ALT 40/30 T. bili 1.0. On 04/09, patient underwent successful laparoscopic cholecystectomy and tolerated full liquid diet. Patient is to be discharged with Union 5 and Colace. On discharge, patient is hemodynamically stable, labs and vitals reviewed and patient is ready to be discharged home. Imaging: Abdominal US: cholelithiasis, borderline thickening GB wall Discharge Recommendations: - Please take all medications as prescribed - Start Colace 1 mg twice daily for 10 days, Union 5/325 1 tablet every 6 hours as needed for pain, and ibuprofen 600 mg tablet every 8 hours as needed for pain. - Continue all home medications except as above - Please follow up with your PCP within one week of discharge - Please follow up with your surgeon within one week of discharge - If your symptoms worsen, please seek immediate medical attention and return to your nearest emergency room. - If you do not have a PCP, you may follow up at the [facility] at [facility] [address], [facility] [address], Hospital Diagnoses: #Acute calculus cholecystitis s/p laparascopic cholecystecomy 04/09/25 #RUQ pain Rachael Srivastava, DO Internal Medicine, PGY-1 Time Spent with Patient Time attestation: Total time spent providing and/or coordinating discharge services: 34 min Time spent: Greater than 30 minutes Exam Vital Signs Temp Pulse Resp BP Pulse Ox O2 Del Method O2 Flow Rate 98.2 F 99 16 143/89 H 97 Room Air 2 04/09/25 12:32 04/09/25 12:32 04/09/25 12:32 04/09/25 12:32 04/09/25 12:32 04/09/25 04:00 04/09/25 12:17 Narrative Exam GENERAL: AOx3, no acute distress HEENT: mucous membranes moist, bilateral sclera anicteric CARDIOVASCULAR: regular rate and rhythm, S1/S2 present, no murmurs appreciated PULMONARY: clear to auscultation bilaterally, no rales/rhonchi/wheezes ABDOMINAL: soft, non-distended, bowel sounds present EXTREMITIES: no peripheral edema SKIN: warm and dry, intact, no rashes NEURO: CN II-XII grossly intact, no focal deficits, alert, following commands Discharge Plan Plan Patient Disposition: HOME (Self Care) Care Plan Goals: Please follow-up primary care physician within 2 to 3 days upon discharge Please follow-up with your general surgeon within 5 to 7 days upon discharge. You have been started on Colace 1 mg twice daily for 10 days, Union 5/325 1 tablet every 6 hours as needed for pain, and ibuprofen 600 mg tablet every 8 hours as needed for pain. Come back to the ED if you develop any fevers, excruciating pain, abdominal distention, or any other concerning symptoms. Prescriptions/Referrals Prescriptions/Med Rec: New hydrocodone-acetaminophen 5-325 mg Tablet 1 tab PO Q6HR MDD 4 PRN (Reason: pain (scale score 7-10)) Qty: 10 0RF docusate sodium [Colace] 100 mg capsule 100 mg PO BID Qty: 20 0RF ibuprofen 600 mg tablet 600 mg PO Q8H PRN (Reason: pain (scale score 4-6)) Qty: 15 0RF Continued [id number] 1 mg Tablet 1 tab PO QDAY Referrals: Steven Allen MD [Physician, General Surgery] Ceferino Catherine MD [Primary Care Provider] Patient/Caregiver Discharge Instructions Discharge Activity: activity as tolerated Other Discharge Activity Instructions:: Please follow-up primary care physician within 2 to 3 days upon discharge Please follow-up with your general surgeon within 5 to 7 days upon discharge. You have been started on Colace 1 mg twice daily for 10 days, Union 5/325 1 tablet every 6 hours as needed for pain, and ibuprofen 600 mg tablet every 8 hours as needed for pain. Come back to the ED if you develop any fevers, excruciating pain, abdominal distention, or any other concerning symptoms. Education Materials: Cholecystectomy Laparoscopic Dc, Preventing Surgical Site Infections Print Language: Slovak Activity Restrictions/Additional Instructions: May shower in 24 hours. Avoid lifting, straining, pulling or pushing for 4 weeks. May take over the counter laxatives if no bowel movements in 2 days. Follow up with Dr. Allen in 2 weeks, please call [phone] for an appointment. May have liquid diet today, may advance to low fat diet tomorrow. Stand Alone Forms: [employer] Award Info., Patient Portal Info Letter, Work/Release Restrictions Discharge Order Discharge Orders: Discharge (Routine); Ordered 04/09/25 Ordered By: Lukas Cueva Quality Discharge Quality Measures VTE prophylaxis MD Attestestation MD Attestation I have seen and examined the patient. I was physically present for the lafle[place] portions of the services provided including history, physical exam, diagnosis, treatment plans and orders. I agree with assessment and plan of care as documented by residents. Patient seen at bedside this afternoon after cholecystectomy. Appears mildly sleepy likely secondary to anesthesia, comfortable. States has minimal abdominal pain around 3/10. Was able to tolerate diet, denies any nausea or vomiting. Discussed with general surgery, Agreed patient being stable for discharge on analgesics. Recommended to follow-up with PCP and general surgery in 1 to 2 weeks of discharge. Even though this this note was carefully revised there may still be minor errors in youth specialist due to voice recognition software. Geo Brito MD
== END 2025-04-09 17:09 | disposition home or self-care (01) ==
LOC: SERX 15:16 → S3SX 04-09 08:11 → SERHOLD 04-09 13:59 → S3SX 04-09 13:59
PROVIDERS: Nurse Practitioner Family; Surgery; Admitting Provider Student in an Organized Health Care Education/Training Program; Emergency Provider Emergency Medicine; PCP Family Medicine; Visit Provider Student in an Organized Health Care Education/Training Program
PROC: 0FT44ZZ Resection of Gallbladder, Percutaneous Endoscopic Approach (ICD-10-PCS; CPT 47562; principal; 2025-04-09 10:30)
DX: K80.12 Calculus of gallbladder with acute and chronic cholecystitis without obstruction (principal)
CPT/HCPCS: 47562; 36415; 76705; 80053; 80061; 80307; 81001; 81025; 83605; 83690; 83735; 85025; 85610; 85730; 87040; 93225; 96374; 99283; A4217; A4649; G0378; J0131; J0694; J1171; J1885; J2250; J2405; J2543; J2704; J3010; J3490; J7120; A9270